=== PATIENT | female | born 1965 | race Two or more races ===

== ENCOUNTER 2018-07-29 12:17 | Day surgery (SDC) | payer OTHER ==
[~2018-07-29] VITALS: Ht 152.4 cm; Wt 101.7 kg
[2018-07-29] MEDS ORDERED: ATENOLOL (13:20)
[2018-07-29 13:23] VITALS: Ht 152.4 cm; Wt 101.7 kg
[2018-07-29 13:28] VITALS: BP 172/80; PULSE 65; RESP 14
--- NOTE | 2018-07-29 13:46 | PREAC ---
Date/Time of Note Date/Time of Note DATE: 07/29/18 TIME: 13:45 Anesthesia Eval and Record Evaluation Time Pre-Procedure Interview DATE: 07/29/18 TIME: 13:45 Age 53 Sex female NPO: 8 hrs Preoperative diagnosis Colon screening Planned procedure Colonoscopy Past Medical History Past Medical History: Includes Cardio: HTN, Dyslipidemia GI: Morbid obesity Surgery & Anesthesia Issues No known issue Meds Anticoagulation: No Beta Lindsey within 24 hr: Yes Reported Medications [Atenolol] No Conflict Check 07/29/18 Meds reviewed: Yes Allergies Coded Allergies: Penicillins (Verified Allergy, Unknown, 07/29/18) Allergies Reviewed: Yes Labs/Studies Labs Reviewed: Reviewed by anesthesiologist test: N/A Studies: ECG Pre-procedure Exam Last vitals Vital Signs Date Temp Pulse Resp B/P (MAP) Pulse Ox O2 O2 Flow FiO2 Time Delivery Rate 07/29/18 98.1 65 14 172/80 97 Room Air 13:28 (110) Airway: Adequate mouth opening, Adequate thyromental dist Mallampati: Mallampati II Teeth: Normal Lung: Normal Heart: Normal ASA Physical Status ASA physical status: 3 Emergency: None Planned Anesthetic General/MAC: MAC Pre-operative Attestations Prior to commencing anesthesia and surgery, the patient was re-evaluated, there was verification of: *The patient's identity *The results of appropriate recent lab work and preoperative vital signs *The above evaluation not changing prior to induction *Anesthetic plan, risk benefits, alternative and complications discussed with patient/family; questions answered; patient/family understands, accepts and wishes to proceed. KARINE FERRELL MD July 29, 2018 13:46
[2018-07-29] MEDS ORDERED: PROPOFOL 60 ML ONE (13:48)
[2018-07-29] MEDS ORDERED: LIDOCAINE 2% (SDV) 5 ML INJ ONE (13:48)
--- NOTE | 2018-07-29 14:13 | PAC ---
Date/Time of Note Date/Time of Note DATE: 07/29/18 TIME: 14:12 Post-Anesthesia Notes Post-Anesthesia Note Last documented vital signs Vital Signs Date Temp Pulse Resp B/P (MAP) Pulse Ox O2 O2 Flow FiO2 Time Delivery Rate 07/29/18 98.1 65 14 172/80 97 Room Air 13:28 (110) Activity: WNL Respiratory function: WNL Cardiovascular function: WNL Mental status: Baseline Pain reasonably controlled: Yes Hydration appropriate: Yes Nausea/Vomiting absent: Yes Comments BP:128/67, P:78, Spo2:100%, T:98,9 KARINE FERRELL MD July 29, 2018 14:13
[2018-07-29 14:40] VITALS: BP 166/83; PULSE 70; RESP 21
== END 2018-07-29 16:06 | disposition home or self-care (01) ==
LOC: GIL 12:17
PROVIDERS: ATTEND Internal Medicine Gastroenterology
DX: Z12.11 Encounter for screening for malignant neoplasm of colon (principal); D12.5 Benign neoplasm of sigmoid colon; K57.30 Diverticulosis of large intestine without perforation or abscess without bleeding; K64.8 Other hemorrhoids; I10 Essential (primary) hypertension
CPT/HCPCS: 45380; 88305; Z7610